=== PATIENT | female | born 1965 | race Caucasian/White ===

== ENCOUNTER 2016-12-07 03:09 | Inpatient (IN) | payer OTHER ==
--- NOTE | ~2016-12-07 | CT4 ---
[facility] A Service of [facility] RADIOLOGY TEXT RESULTS PATIENT: COLBY SMITH LOCATION: [place] [address] : [birth year] UNIT #: [id number] AGE: [address]: Bi Stewart MD SEX: F ORDER DR: [id number] [facility] [address] [place], [place] [address] [id number] MR#: [id number] Acc #: [id number] NAME: COLBY SMITH : 1965 SEX: F STUDY DATE/TIME: 12/07/2016 8:48 UNIT: DARLIN ROOM: STUDY DESCRIPTION: CT Abd and Pelv Wo Cont Attending Physician: Jeff Bueno D.O. Ordering Physician: [place] Pa-C Primary Care Physician: Viola Marvin M.D. MEDICAL IMAGING REPORT This report is preliminary unless electronic signature is present EXAM CT abdomen and pelvis without contrast 12/07/2016 HISTORY 51-year-old female with lower abdominal pain and nausea, vomiting for 2 days. Left lower quadrant abdominal pain for [address] abdomen and pelvis 02/12/2016. TECHNIQUE Helical scan performed through the abdomen and pelvis without oral or IV contrast. Coronal and sagittal reformatted images. This CT exam was performed with one or more of the following radiation dose reduction techniques: automatic exposure control, adjustment of mA and/or kV according to patient size, and iterative reconstruction. FINDINGS Visualized lung bases demonstrate minimal dependent bibasilar atelectasis. The liver, spleen, pancreas, and both adrenal glands are within expected limits. Gallbladder surgically absent. Stable 3 mm non-obstructing right intrarenal stone. No obstructing ureteral stones or hydronephrosis. Stable left peripelvic renal cysts. Abdominal aorta normal in course and caliber. Small bowel is unremarkable without obstruction. Appendix normal. Moderate stool burden. Colon is otherwise unremarkable. No free fluid or free air. Mild distension of the urinary bladder. Uterus and adnexa are unremarkable. No free pelvic fluid. No acute bony abnormality. [facility] A Service of [facility] RADIOLOGY TEXT RESULTS PATIENT: COLBY SMITH LOCATION: [facility] [id number] : [birth year] UNIT #: [id number] AGE: [address]: Bi Stewart MD SEX: F ORDER DR: IMPRESSION 1. No acute abdominal or pelvic findings. 2. Stable 3 mm non-obstructing right intrarenal stone. No obstructing ureteral stones or hydronephrosis. 3. Normal appendix. 4. Moderate stool burden. 5. Cholecystectomy. Dictated by... Allan Archer M.D. THIS IS AN ELECTRONICALLY VERIFIED REPORT Allan Archer M.D. at 12/08/2016 6:21 AM DESTINY/eva TD: 12/07/2016 09:56 JOB #: [id number] MEDICAL IMAGING REPORT Page 1 of 1 COPY
--- NOTE | ~2016-12-07 | CO ---
Unit #: [id number] #: [id number] Patient: COLBY SMITH [id number] [address] [address] [id number] I MR#: [id number] NAME: COLBY SMITH. ROOM: [facility] Age: 51 Sex: F Admission Date: 12/07/2016 : 1965 Attending Physician: Bi Stewart M.D. Primary Care Physician: Viola Marvin M.D. Consultation Date: 12/08/2016 CONSULTATION REPORT REASON FOR CONSULTATION GI bleed. HISTORY Ms. Smith is a pleasant 51-year-old white female who presented with a history of increasing fatigue, shortness of breath and severe iron deficiency anemia. She states she has had mild vomiting in the past and vomiting blood. It is not clear whether there is any history of melena. She does have postprandial retrosternal ascending heartburn (1) symptoms. PAST MEDICAL HISTORY Significant history of thyroid cancer, status post surgery. She also has a history of depression, chronic kidney disease, hypertension. There is also a history of GI bleed in the past. An anemia of chronic disease. History of migraines. PAST SURGICAL HISTORY Previous surgeries included thyroid lobectomy, cholecystectomy, and tubal ligation. HOME MEDICATIONS Her medications at home were reviewed and include Valium, gabapentin, levothyroxine, meclizine, Reglan, Pamelor, rizatriptan, topiramate, omeprazole. ALLERGIES Ibuprofen and lisinopril, which cause renal injury. SOCIAL HISTORY Does not smoke or drink alcohol. Lives at home. FAMILY HISTORY Family history of heart failure, heart disease, lung cancer and diabetes. No family history of colon, pancreatic cancer or liver disease. REVIEW OF SYSTEMS A detailed review of organ system does not reveal any recent weight loss. No history of fevers, chills or rigors. No history of headaches, seizures, chest pain or syncope. No history of cough or expectoration, or hemoptysis. Has history of shortness of breath and fatigue. No history of dysuria, hematuria. No history of focal seizures or extremity weakness. The rest of the review of organ system is unremarkable. Unit #: [id number] #: [id number] Patient: COLBY SMITH PHYSICAL EXAMINATION GENERAL: She is alert, oriented, is comfortable and obese. VITAL SIGNS: Temperature 97.8, pulse 78 per minute, respiratory rate 18, blood pressure 126/65. She weighs 222 pounds and her baseline weight has been about 240 pounds in the past. HEENT: She has moderate pallor, there being no icterus, lymphadenopathy. Grade 1 pitting peripheral edema. CARDIOVASCULAR: Examination normal heart sounds. No murmurs of auscultation. LUNGS: Reveals normal breath sounds. Good air entry. ABDOMEN: Soft, obese, and nontender, liver and spleen are not palpable and bowel sounds normal. DIAGNOSTIC STUDIES LABORATORY STUDIES: Shows an admission hemoglobin of 7.5 with an MCV of 66. White count is 17,000, platelet count is 462. Serum chemistry shows a normal BUN and creatinine and electrolytes. A CO2 of 21. Albumin is 2.6. LFTs are otherwise normal. Blood glucose is 144 and 130. Urinalysis shows 1+ leukocyte esterase positive and 5-10 WBC, 1+ bacteruria. CLINICAL IMPRESSION Patient has moderately severe iron deficiency anemia. It is noteworthy that she had upper endoscopy and colonoscopy approximately 2 years ago, at the time of the colonoscopy she basically had a single polyp, otherwise examination was normal. Therefore, there is little reason to repeat colonoscopy. Suggest giving the patient intravenous iron infusions and recheck her iron studies and consider an upper endoscopy later today. The pros and cons of procedure/potential risk and complications were discussed with patient and she was reassured. Thank you for asking me to see this pleasant lady. Dictated by... Mirna Sena/wesley TD: 12/10/2016 09:02 JOB #: [id number] CONSULTATION REPORT Page 1 of 1 X Ho De Jesus MD X CONSULTATION REPORT
--- NOTE | ~2016-12-07 | HP ---
Unit #: [id number] #: [id number] Patient: COLBY SMITH [id number] [address] [address] [id number] I MR#: [id number] NAME: COLBY SMITH. ROOM: [address] Age: 51 Sex: F Admission Date: 12/07/2016 : 1965 Attending Physician: Bi Stewart M.D. Primary Care Physician: Viola Marvin M.D. HISTORY AND PHYSICAL ADMISSION DIAGNOSES 1. Patient with GI bleed. 2. Hypertension. 3. History of GI bleed in the past. 4. History of CKD. 5. Depression. 6. History of anemia. 7. History of thyroid cancer, status post right thyroid lobectomy and isthmusectomy. HISTORY OF PRESENT ILLNESS Ms. Smith is a 51-year-old female, patient of Dr. Marvin'kasandra who comes to the emergency room with complaints of increasing weakness and fatigue, initial evaluation found the patient with the hemoglobin of 7.5, her baseline is around 9 to 10. Her Hemoccult test positive in the emergency room, therefore, the patient is being admitted. She denies any other symptoms. She denies any fever or chills, chest pain, head, dizziness, nausea or vomiting, or diarrhea. She has been "seeing some dark stools," lately. The patient does have a history of previous GI bleed. REVIEW OF SYSTEMS A twelve point review of systems was done and is negative except as above. PAST MEDICAL HISTORY 1. Hypertension. 2. History of migraines. 3. Gastroesophageal reflux disease. 4. GI bleed in the past. 5. History of thyroid cancer. 6. History of CKD. 7. Depression. 8. Anemia of chronic disease. PAST SURGICAL HISTORY Significant for thyroid lobectomy and isthmusectomy, also cholecystectomy, and tubal ligation. HOME MEDICATIONS Don't have in front of me, this will be clarified with the pharmacy and restart accordingly. ALLERGIES No known drug allergies. Unit #: [id number] #: [id number] Patient: COLBY SMITH SOCIAL HISTORY Denies any tobacco or alcohol, or illicit drugs. FAMILY HISTORY Significant for lung cancer, heart disease, congestive heart failure, and diabetes. PHYSICAL EXAMINATION GENERAL: She is a 51-year-old female, in no acute distress. VITAL SIGNS: Blood pressure 119/67, heart rate 80, respirations 23, temperature 98.2. HEENT: Head: Atraumatic. Pupils equal, round, and reactive to light and accommodation. Extraocular muscles are intact. Oropharynx clear. NECK: Supple. No jugular venous distention. No bruits. CHEST: Chest is diminished at the bases but generally clear. CARDIOVASCULAR EXAM: With S1 and S2. No murmurs. ABDOMEN: Soft, nontender, and nondistended. EXTREMITIES: Lower extremities without any cyanosis, clubbing, or edema. NEUROLOGIC EXAM: Patient grossly intact, no focal deficits. LABS AND DIAGNOSTICS IMAGING: CT of the abdomen and pelvis, no acute findings, stable, 3 mm nonobstructing right infrarenal stone, normal appendix, moderate stool burden, cholecystectomy. LABORATORY: Chemistries, significant sodium of 134, CO2 of 21, calcium 7.9, albumin 2.6, blood glucose 144, coagulation pattern unremarkable, white count is 17,000, H and H 7.5 and 25.5. Urinalysis shows 1+ leukocyte esterase, 5-10 WBCs, 1+ bacteria. ASSESSMENT/PLAN 1. Question of a GI bleed, start on IV b.i.d. PPI, IV hydration, n.p.o. until Dr. De Jesus sees her, n.p.o. except for medications. Monitor H and H, again will do H and H q.6h x2, and then followup with CBC in the morning. 2. Questionable urinary tract infection and dose of Rocephin and followup on the urine culture. 3. History of hypertension, stable. 4. History of thyroid cancer, status post right lobectomy. 5. CKD currently stable. 6. GI and DVT prophylaxis for PPI and SCDs. Dictated by Mirna Varela/avi TD: 12/07/2016 14:38 JOB #: [id number] Unit #: [id number] #: [id number] Patient: COLBY SMITH HISTORY AND PHYSICAL Page 1 of 1 X Pat,Bi HINOJOSA X HISTORY AND PHYSICAL
--- NOTE | ~2016-12-07 | OR ---
Unit #: [id number] #: [id number] Patient: COLBY SMITH [id number] [address] [place], [place] [address] [id number] I MR#: [id number] NAME: COLBY SMITH. ROOM: 473 Date of Procedure: 12/08/2016 Admission Date: 12/07/2016 Surgeon: Ho De Jesus M.D. : 1965 Attending Physician: Bi Stewart M.D. Primary Care Physician: Viola Marvin M.D. OPERATIVE REPORT PRIMARY CARE PHYSICIAN Viola Marvin M.D. PREOPERATIVE DIAGNOSIS Possible upper gastrointestinal bleed. PROCEDURE PERFORMED Upper gastrointestinal endoscopy. POSTOPERATIVE DIAGNOSES The patient had moderate amount of solid food residue in the mid body of the stomach. Otherwise, examination was normal up to third part of duodenum. The patient has significant gastroparesis. RECOMMENDATIONS There is no need for repeat colonoscopy; although, the patient has iron-deficiency anemia. The colonoscopy was done couple of years ago and is documented in the chart. The most likely etiology of the patient's gastroparesis is psychotropic medications that will considerably slow gastric emptying. She is advised to use small frequent low residue meals. She has also been started on Reglan 10 mg IV t.i.d. Discontinue IV Protonix and instead give oral Protonix 40 mg p.o. daily and she must have at least 2 hours between dinner and nap time. SEDATION USED Procedural sedation. DESCRIPTION OF PROCEDURE Following detailed explanation of potential risks and complications of an upper endoscopy, namely perforation, bleeding, and complication related to sedation, the patient was brought to GI lab and laid in the left lateral decubitus position. Lubricated tip of the Olympus video upper endoscope was passed through the bite block into the proximal esophagus under direct vision. The entire esophageal mucosa was examined and appeared normal. Z-line was nicely demarcated, there being no esophagitis or hiatus hernia. The scope was then advanced into the gastric cavity and the latter was insufflated. Mucosa of the fundus, body, and antrum was examined. Moderate amount of solid food residue was seen in the stomach filling up most of the cavity of the stomach and antrum extending even in the duodenum. The pylorus was intubated with visualization of the normal duodenal bulb and second and third part of the duodenum. Upon withdrawal and retroflexion, incisura, cardia, and greater curve was examined and no Unit #: [id number] #: [id number] Patient: COLBY SMITH additional findings were noted. The scope was then withdrawn in the distal esophagus. The entire esophageal mucosa was examined all the way up to pharynx, no additional findings were noted. The patient tolerated the procedure without any postprocedure complications. Dictated by... Mirna Sena/roland TD: 12/09/2016 22:46 JOB #: [id number] CC: Mirna Silva M.D. OPERATIVE REPORT Page 1 of 1 X Ho De Jesus MD X PROCEDURE OPERATIVE NOTE
--- NOTE | ~2016-12-07 | DS ---
Unit #: [id number] #: [id number] Patient: COLBY SMITH [id number] [address] [address] [id number] I MR#: [id number] NAME: COLBY SMITH. ROOM: 473 Age: 51 Sex: F Admission Date: 12/07/2016 : 1965 Discharge Date: 12/10/2016 Attending Physician: Bi Stewart M.D. Primary Care Physician: Viola Marvin M.D. DISCHARGE SUMMARY DISCHARGE DIAGNOSES 1. Gastrointestinal bleed, status post Gastroenterology evaluation, status post EGD. 2. Hypertension. 3. History of thyroid cancer, status post right thyroid lobectomy, now on replacement therapy. 4. Chronic kidney disease, stable. 5. Depression. DISCHARGE MEDICATIONS 1. Neurontin 400 mg daily. 2. Topiramate 200 mg b.i.d. 3. Pamelor 75 mg at bedtime. 4. Meclizine 25 mg q.i.d. p.r.n. 5. Valium 10 mg b.i.d. 6. Rizatriptan 10 mg daily p.r.n. 7. Reglan 10 mg t.i.d. 8. Baldwin 5/325 at 1 or 2 tablets q.6 hours p.r.n. for pain. 9. Omeprazole 40 mg b.i.d. 10. Levothyroxine 50 mcg p.o. daily. CONSULTS DURING THIS HOSPITAL STAY Dr. De Jesus, Gastroenterology. LABS, DIAGNOSTICS, AND PROCEDURES DURING THIS HOSPITAL STAY 1. CT abdomen and pelvis showed no acute abdominal or pelvic findings. 2. EGD unremarkable except for some solid residue in the body of the stomach. 3. Discharge date hemoglobin and hematocrit 7.6 and 25.2, clear to be discharged per GI. HISTORY OF PRESENT HOSPITAL STAY Please refer to History and Physical for initial presentation on this female. ACTIVE PROBLEMS DIAGNOSED Gastrointestinal bleed, status post GI evaluation, status post EGD with results as above. Patient apparently had an unremarkable colonoscopy about two years ago. Therefore, colonoscopy was not recommended to repeat per GI. Patient had IV iron transfusion. Hemoglobin and hematocrit remained stable. Patient is to follow up with GI as an outpatient. Stable to be discharged per GI. Hypertension, stable. Unit #: [id number] #: [id number] Patient: COLBY SMITH History of thyroid cancer, status post right lobectomy. Continue thyroid replacement therapy. Chronic kidney disease, stable, last BUN and creatinine 14 and 0.8 from December 09. Depression. Continue home medications. History of headaches. Continue home medications. FOLLOWUP With GI and primary care in two to three days. Dictated by... Bi Stewart M.D. OC/albert TD: 12/10/2016 20:25 JOB #: [id number] DISCHARGE SUMMARY Page 1 of 1 X Bi Stewart MD X DISCHARGE SUMMARY
[~2016-12-07 03:09] MED LIST: ACETAMINOPHEN PO; ALBUTEROL17 GM INH; ANTIVERT PO; ANUSOL SUPP1 SUPP PR; AZITHROMYCIN250 MG PO; BACTRIM DS TABL1 TA1 PO; BENTYL20 MG PO; BUMETANIDE2 M1 PO; CELEXA20 MG PO; CIPRO PO; CORTISPORIN-TC10 ML OD; DIAZEPAM PO; DIAZEPAM10 MG PO; DOXYCYCLINE HY100 M3 PO; DYAZIDE 37.5/251 CAP PO; EC-NAPROSYN500 MG PO; FAMOTIDINE PO; FLEXERIL PO; FLEXERIL10 MG PO; FLONASE16 GM; FLOXIN20 EA AS; GABAPENTIN300 M2 PO; HYDROCODON-ACE1 EAC5 PO; IBUPROFEN800 MG PO; INDOMETHACIN25 MG PO; K-DUR20 ME2 PO; K-TAB ER20 MEQ PO; KEFLEX500 MG PO; KETOPROFEN PO; LASIX20 MG PO; LEVOTHYROXINE50 MC1 PO; LEVOTHYROXINE50 MCG PO; LORTAB 10/500 T1 TAB PO; MEDI-MECLIZINE25 M1 PO; MEDROL PO; MELOXICAM15 MG PO; MOBIC PO; MOTION SICKNESS25 M4 PO; NASACORT AQ16.5 GM; NEURONTIN300 MG PO; NORCO 10/3251 TAB; NORCO 10/3251 TAB PO; NORCO 5/325 TAB1 TAB PO; OMEPRAZOLE20 M1 PO; OMEPRAZOLE40 M1 PO; ORUDIS75 M1 DOB; OS-CAL 500 + D500 MG PO; PAMELOR25 M1 PO; PEPCID AC20 M2 PO; PEPCID40 MG PO; PERCOCET5/325 PO; PHENERGAN PO; PHENERGAN12.5 M1 PR; PHENERGAN25 M1; PHENERGAN25 M1 DOB; PHENERGAN25 M1 PO; PHENERGAN25 MG PO; PREDNISONE PO; PRILOSEC20 M1 PO; PRILOSEC20 MG PO; PROTONIX PO; RIZATRIPTAN10 M2 PO; SENNA PO; SUDAFED30 M1 PO; SUMATRIPTAN SU100 MG; SUMATRIPTAN SU100 MG PO; TOPAMAX200 MG; TOPAMAX50 MG DOB; TOPIRAMATE100 MG PO; TYLOX1 CAP 5/50 DOB; ULTRAM PO; VALIUM10 M1; VENTOLIN5 MG/ML IH; VICODIN; VICODIN 5/500 T1 TAB PO; VICODIN PO; VOLTAREN50 MG PO; ZANTAC PO; ZESTORETIC 20/21 TAB PO; ZOFRAN PO; [UNRECOGNIZED DRUG - OTHER] PO
[2016-12-07 06:01] LABS: BASOPHIL# 0.1 X10e3 (0-0.3); BASOPHIL% 0.6 % (0-2.5); EOSINOPHIL# 0.1 X10e3 (0-0.7); EOSINOPHIL% 0.8 % (0.0-7.0); HEMATOCRIT 25.5 % (35.0-45.0); HEMOGLOBIN 7.5 gm/dL (12.0-16.0); LYMPHOCYTE# 1.9 X10e3 (1.0-3.5); LYMPHOCYTE% 11.3 % (17.0-45.0); MEAN CELL VOLUME 66.9 FL (83-96); MEAN CORPUSCULAR HEMOGLOBIN 19.8 PG (28-34); MEAN CORPUSCULAR HGB CONC 29.5 g/dL (30-36); MEAN PLATELET VOLUME 6.7 FL (6.5-11.5); MONOCYTE# 1.6 X10e3 (0-1.0); MONOCYTE% 9.1 % (3.0-12.0); NEUTROPHIL# 13.4 X10e3 (1.5-7.1); NEUTROPHIL% 78.2 % (40-75); PLATELET COUNT 462 X10e3 (140-420); RED CELL DISTRIBUTION WIDTH 19.9 % (11.0-15.5); WHITE BLOOD COUNT 17.2 X10e3 (4.0-10.5)
[2016-12-07 06:12] LABS: DIFF IND YES
[2016-12-07 06:23] LABS: ALBUMIN SERUM 2.6 g/dL (3.5-5.0); BILIRUBIN, DIRECT 0.1 mg/dL (0.0-0.2); BILIRUBIN,INDIRECT 0.2 mg/dL (0.0-0.9); BILIRUBIN,TOTAL 0.3 mg/dL (0.2-2.0); BUN/CREATININE RATIO 11.11; CALCIUM SERUM 7.9 mg/dL (8.4-10.2); CREATININE SERUM 0.9 mg/dL (0.6-1.4); GLOM FILT RATE Estimated 74.6 mL/min (>60); POTASSIUM 3.7 mmol/L (3.5-5.1); PROTEIN TOTAL SERUM 7.5 g/dL (6.0-8.3)
[2016-12-07 07:15] LABS: URINE SOURCE CLEAN CATCH
[2016-12-07 07:24] LABS: URINE APPEARANCE CLOUDY; URINE BILIRUBIN NEG (NEG); URINE BLOOD NEG (NEG); URINE COLOR YELLOW; URINE GLUCOSE NEG (NEG); URINE KETONE NEG (NEG); URINE LEUKOCYTE ESTERASE 1+ (NEG); URINE NITRATE NEG (NEG); URINE PH 7.5 (5-8); URINE PROTEIN NEG (NEG); URINE SPECIFIC GRAVITY 1.008 (1.003-1.035)
[2016-12-07 07:27] LABS: ANISOCYTOSIS MOD; HYPOCHROMIA MOD; PLATELET ESTIMATE INCREASED (NORMAL); ROULEAUX SLIGHT
[2016-12-07 07:28] LABS: STOMATOCYTE PRESENT; VACUOLIZATION SL
[2016-12-07 07:28] LABS: CULTURE INDICATED? YES; U HYALINE CASTS AUWI 0-2 /[LPF]; URINE BACTERIA AUWI 1+ (NEGATIVE); URINE SQUAMOUS EPITHELIAL CELL MOD /[HPF]
[2016-12-07] MEDS ORDERED: VALIUM10 MG PO (10:21)
[2016-12-07] MEDS ORDERED: GABAPENTIN400 MG PO (10:22)
[2016-12-07] MEDS ORDERED: TIROSINT50 MCG PO (10:22)
[2016-12-07] MEDS ORDERED: REGLAN10 MG PO (10:23)
[2016-12-07] MEDS ORDERED: PAMELOR75 MG PO (10:23)
[2016-12-07] MEDS ORDERED: VERTICALM25 MG PO (10:23)
[2016-12-07] MEDS ORDERED: RIZATRIPTAN10 MG PO (10:24)
[2016-12-07] MEDS ORDERED: TOPIRAMATE ER200 MG PO (10:25)
[2016-12-07] MEDS ORDERED: OMEPRAZOLE40 M1 PO (10:25)
[2016-12-07 11:04] LABS: INR 1.1; PARTIAL THROMBOPLASTIN TIME 27.7 SECONDS (23.5-31.3); PROTHROMBIN TIME (PATIENT) 11.4 SECONDS (9.6-11.5)
[2016-12-07 16:39] LABS: HEMATOCRIT 26.2 % (35.0-45.0); HEMOGLOBIN 7.6 gm/dL (12.0-16.0)
[2016-12-07 22:41] LABS: HEMATOCRIT 26.4 % (35.0-45.0); HEMOGLOBIN 7.8 gm/dL (12.0-16.0)
[2016-12-08 03:37] LABS: BASOPHIL% 0.5 % (0-2.5); EOSINOPHIL# 0.3 X10e3 (0-0.7); EOSINOPHIL% 3.5 % (0.0-7.0); HEMATOCRIT 25.3 % (35.0-45.0); HEMOGLOBIN 7.5 gm/dL (12.0-16.0); LYMPHOCYTE# 1.5 X10e3 (1.0-3.5); LYMPHOCYTE% 16.7 % (17.0-45.0); MEAN CELL VOLUME 67.8 FL (83-96); MEAN CORPUSCULAR HGB CONC 29.5 g/dL (30-36); MEAN PLATELET VOLUME 6.6 FL (6.5-11.5); MONOCYTE# 0.8 X10e3 (0-1.0); MONOCYTE% 9.2 % (3.0-12.0); NEUTROPHIL# 6.5 X10e3 (1.5-7.1); NEUTROPHIL% 70.1 % (40-75); PLATELET COUNT 428 X10e3 (140-420); RED BLOOD COUNT 3.73 X10e (3.90-5.30); RED CELL DISTRIBUTION WIDTH 20.4 % (11.0-15.5); WHITE BLOOD COUNT 9.2 X10e3 (4.0-10.5)
[2016-12-08 03:38] LABS: DIFF IND NO
[2016-12-08 03:45] LABS: CALCIUM SERUM 7.9 mg/dL (8.4-10.2); CREATININE SERUM 0.8 mg/dL (0.6-1.4); POTASSIUM 3.6 mmol/L (3.5-5.1)
[2016-12-09 03:48] LABS: BASOPHIL# 0.1 X10e3 (0-0.3); BASOPHIL% 0.7 % (0-2.5); EOSINOPHIL# 0.3 X10e3 (0-0.7); EOSINOPHIL% 3.8 % (0.0-7.0); HEMATOCRIT 25.5 % (35.0-45.0); HEMOGLOBIN 7.6 gm/dL (12.0-16.0); LYMPHOCYTE# 1.7 X10e3 (1.0-3.5); LYMPHOCYTE% 19.3 % (17.0-45.0); MEAN CELL VOLUME 66.7 FL (83-96); MEAN CORPUSCULAR HEMOGLOBIN 19.9 PG (28-34); MEAN CORPUSCULAR HGB CONC 29.8 g/dL (30-36); MEAN PLATELET VOLUME 6.3 FL (6.5-11.5); MONOCYTE# 0.8 X10e3 (0-1.0); MONOCYTE% 8.8 % (3.0-12.0); NEUTROPHIL% 67.4 % (40-75); PLATELET COUNT 468 X10e3 (140-420); RED BLOOD COUNT 3.82 X10e (3.90-5.30); RED CELL DISTRIBUTION WIDTH 19.8 % (11.0-15.5); WHITE BLOOD COUNT 8.9 X10e3 (4.0-10.5)
[2016-12-09 03:49] LABS: DIFF IND NO
[2016-12-09 04:16] LABS: ALBUMIN SERUM 2.4 g/dL (3.5-5.0); BILIRUBIN,TOTAL 0.4 mg/dL (0.2-2.0); BUN/CREATININE RATIO 17.5; CALCIUM SERUM 8.3 mg/dL (8.4-10.2); CREATININE SERUM 0.8 mg/dL (0.6-1.4); POTASSIUM 4.1 mmol/L (3.5-5.1); PROTEIN TOTAL SERUM 6.5 g/dL (6.0-8.3)
[2016-12-10 03:37] LABS: BASOPHIL# 0.1 X10e3 (0-0.3); BASOPHIL% 0.8 % (0-2.5); EOSINOPHIL# 0.4 X10e3 (0-0.7); EOSINOPHIL% 3.9 % (0.0-7.0); HEMATOCRIT 25.2 % (35.0-45.0); HEMOGLOBIN 7.6 gm/dL (12.0-16.0); LYMPHOCYTE# 1.8 X10e3 (1.0-3.5); LYMPHOCYTE% 18.5 % (17.0-45.0); MEAN CELL VOLUME 67.1 FL (83-96); MEAN CORPUSCULAR HEMOGLOBIN 20.2 PG (28-34); MEAN CORPUSCULAR HGB CONC 30.2 g/dL (30-36); MEAN PLATELET VOLUME 6.2 FL (6.5-11.5); MONOCYTE# 0.7 X10e3 (0-1.0); MONOCYTE% 7.2 % (3.0-12.0); NEUTROPHIL# 6.6 X10e3 (1.5-7.1); NEUTROPHIL% 69.6 % (40-75); PLATELET COUNT 449 X10e3 (140-420); RED BLOOD COUNT 3.75 X10e (3.90-5.30); RED CELL DISTRIBUTION WIDTH 20.1 % (11.0-15.5); WHITE BLOOD COUNT 9.5 X10e3 (4.0-10.5)
[2016-12-10 03:38] LABS: DIFF IND NO
[2016-12-10] MEDS ORDERED: HYDROCODON-ACE1 EA13 PO (19:19)
== END 2016-12-10 21:00 | disposition home or self-care (01) | DRG 378 ==
LOC: CED 03:09 → CEDOF 10:15 → CED 12:10 → CEDOF 12:10 → C4C 15:15
PROVIDERS: Emergency Medicine; Hospitalist; Internal Medicine Gastroenterology; Physician Assistant Medical
PROC: 0DJ08ZZ Inspection of Upper Intestinal Tract, Via Natural or Artificial Opening Endoscopic (ICD-10-PCS; principal; 2016-12-08 06:59)
DX: K92.2 Gastrointestinal hemorrhage, unspecified (principal); D62 Acute posthemorrhagic anemia; K31.84 Gastroparesis; I12.9 Hypertensive chronic kidney disease with stage 1 through stage 4 chronic kidney disease, or unspecified chronic kidney disease; N18.9 Chronic kidney disease, unspecified; F32.9 Major depressive disorder, single episode, unspecified; Z85.850 Personal history of malignant neoplasm of thyroid
CPT/HCPCS: 36415; 74176; 80048; 80053; 80076; 81003; 82728; 83540; 83550; 84703; 85014; 85018; 85025; 85610; 85730; 86850; 86900; 86901; 87086; 96361; 96374; 97163; 97165; 99285; C9113; J0696; J2250; J2405; J2765; J2916; J3010